=== PATIENT | male | born 1965 ===

== ENCOUNTER 2016-05-26 16:51 | Emergency (ER) | payer BC, OTHER ==
[2016-05-26 17:02] VITALS: RESP 16; TEMP 98; BMI 23.0
--- NOTE | 2016-05-26 17:08 | ED PDOC ---
Arrival/HPI - General Chief Complaint: Trauma Time Seen by Provider: 05/26/16 16:53 Historian: Patient - History of Present Illness Narrative History of Present Illness (Text): 05/26/16 17:06 50yo male with no PMhx present with complaint of back, left side neck and headache s/p trauma 3days ago. States he slipped on ice and fell 3days ago. States he came to the ED for the persistent pain. Took Vicodin at home. Notes chronic back pain history. Denies LOC, focal weakness, nausea, vomiting, visual changes, urinary/fecal incontinence, any other complaint. Past Medical History - Provider Review Nursing Documentation Reviewed: Yes - Gastrointestinal Hx Gastroesophageal Reflux: Yes - Psychiatric Hx Substance Use: No Family/Social History - Physician Review Nursing Documentation Reviewed: Yes Family/Social History: Unknown Family HX Smoking Status: Never Smoked Hx Alcohol Use: No Hx Substance Use: No Allergies/Home Meds Allergies/Adverse Reactions: Allergies No Known Allergies Allergy (Verified 05/26/16 17:04) Home Medications: Home Meds Medication Instructions Recorded Confirmed Omeprazole [Omeprazole] 20 mg PO DAILY 05/26/16 05/26/16 Zolpidem [Ambien] 5 mg PO HS 05/26/16 05/26/16 Review of Systems - Physician Review All systems were reviewed & negative as marked: Yes - Review of Systems Constitutional: Normal Eyes: Normal ENT: Normal Respiratory: Normal Cardiovascular: Normal Gastrointestinal: Normal Genitourinary Male: Normal Musculoskeletal: Back Pain, Neck Pain Skin: Normal Neurological: Headache Endocrine: Normal Hemo/Lymphatic: Normal Psychiatric: Normal Physical Exam Vital Signs Reviewed: Yes Vital Signs Temp Pulse Resp BP Pulse Ox 05/26/16 18:41 72 16 134/94 H 99 05/26/16 16:59 98.0 F 83 16 150/104 H 98 Temperature: Afebrile Blood Pressure: Hypertensive Pulse: Regular Respiratory Rate: Normal Appearance: Positive for: Well-Appearing, Non-Toxic, Comfortable Pain Distress: None Mental Status: Positive for: Alert and Oriented X 3 - Systems Exam Head: Present: Atraumatic, Normocephalic Pupils: Present: PERRL Extroacular Muscles: Present: EOMI Conjunctiva: Present: Normal Mouth: Present: Moist Mucous Membranes Neck: Present: Normal Range of Motion, Paraspinal Tenderness (LEft sided). No: MIDLINE TENDERNESS Respiratory/Chest: Present: Clear to Auscultation, Good Air Exchange. No: Respiratory Distress, Accessory Muscle Use Cardiovascular: Present: Regular Rate and Rhythm, Normal S1, S2. No: Murmurs Abdomen: Present: Normal Bowel Sounds. No: Tenderness, Distention, Peritoneal Signs Back: Present: Normal Inspection. No: Midline Tenderness, Paraspinal Tenderness , Pain with Leg Raise Upper Extremity: Present: Normal Inspection, Normal ROM, NORMAL PULSES, Neurovascularly Intact, Capillary Refill < 2s. No: Cyanosis, Edema, Tenderness , Swelling, Erythema, Temperature Abnormalties, Deformity Lower Extremity: Present: Normal Inspection. No: Edema Neurological: Present: GCS=15, CN II-XII Intact, Speech Normal, Motor Func Grossly Intact, Normal Sensory Function, Normal Cerebellar Funct, Norm Deep Tendon Reflexes, Gait Normal, Memory Normal, Normal 2Pt Descrimination, Other ( No focal neurological deficit) Skin: Present: Warm, Dry, Normal Color. No: Rashes Psychiatric: Present: Alert, Oriented x 3, Normal Insight, Normal Concentration Medical Decision Making ED Course and Treatment: 05/26/16 18:[address] - No acute finding LS and cervical spine xray - No acute finding. Result was DW the pt. He was neurological intact and ambulatory in ED. He is on Vicodin at home. Rx of Flexeril given. Referred to his PMD/Orthopedist. TRT ER for any new or worsening symptoms. - RAD Interpretation Radiology Orders: 05/26/16 17:14 HEAD W/O CONTRAST [CT] Stat CERVICAL SPINE >18YR W/OBLIQUE [RAD] Stat LS SPINE WITH OBL > 18 YRS OLD [RAD] Stat - Medication Orders Current Medication Orders: Discontinued Medications Ketorolac Tromethamine (Toradol) 60 mg IM STAT STA Stop: 05/26/16 18:25 Last Admin: 05/26/16 18:34 Dose: 60 MG IM Administration Charges Document 05/26/16 18:34 HI (Rec: 05/26/16 18:34 HI [id number]) Injection Site MAR Injection Site Left Gluteus Carlos Charges for Administration # of IM Administrations 1 Disposition/Present on Arrival - Present on Arrival Any Indicators Present on Arrival: No History of DVT/PE: No History of Uncontrolled Diabetes: No Urinary Catheter: No History of Decub. Ulcer: No History Surgical Site Infection Following: None - Disposition Have Diagnosis and Disposition been Completed?: Yes Diagnosis: Cervical pain, Back pain, Headache Disposition: HOME/ ROUTINE Disposition Time: 18:30 Patient Plan: Discharge Condition: STABLE Discharge Instructions (ExitCare): Cervical Sprain (ED), Back Pain (ED), Acute Headache (ED) Additional Instructions: Follow up with your Doctor/Orthopedist Return to ED for any new or worsening symptoms Prescriptions: Cyclobenzaprine [Cyclobenzaprine HCl] 10 mg PO BID #10 tab Referrals: Renee Oconnell DO [Primary Care Provider] - Follow up with primary Mesfin Purvis MD [Staff Provider] - Follow up with primary Forms: WORK NOTE
--- NOTE | 2016-05-26 18:20 | CT ---
PROCEDURE: CT HEAD WITHOUT CONTRAST. HISTORY: headache s/p trauma COMPARISON: None available. TECHNIQUE: Axial computed tomography images were obtained through the head/brain without intravenous contrast. Radiation dose: Total exam DLP = 851.7 mGy-cm. FINDINGS: HEMORRHAGE: No intracranial hemorrhage. BRAIN: No mass effect or edema. No atrophy or chronic microvascular ischemic changes. VENTRICLES: Unremarkable. No hydrocephalus. CALVARIUM: Unremarkable. PARANASAL SINUSES: Unremarkable as visualized. No significant inflammatory changes. MASTOID AIR CELLS: Unremarkable as visualized. No inflammatory changes. OTHER FINDINGS: None. IMPRESSION: No evidence of acute intracranial hemorrhage intracranial collection mass effect or midline shift.
[2016-05-26 18:43] VITALS: BP 134/94; PULSE 72; O2SAT 99
--- NOTE | 2016-05-27 10:38 | RAD ---
Indication: Back pain status post trauma Lumbar spine radiographs Comparison: CT abdomen and pelvis without contrast performed 06/17/13 Findings: The patient is status post anterior lumbar fusion involving L4-L5 and L5-S1. Small osteophyte formation of the upper lumbar spine. No acute displaced fracture appreciated. Alignment appears satisfactory. Impression: L4-L5 and L5-S1 anterior lumbar fusion.
--- NOTE | 2016-05-27 10:42 | RAD ---
PROCEDURE: Cervical Spine Radiographs. HISTORY: Pain. COMPARISON: None available FINDINGS: BONES: Limited lateral views. Multilevel degenerative changes including intervertebral disc space narrowing and osteophyte formation. The dens tip is obscured. Alignment appears within normal limits. No acute displaced fracture appreciated. SOFT TISSUES: No prevertebral soft tissue swelling. OTHER FINDINGS: None. IMPRESSION: Limited lateral views. Multilevel degenerative changes. The dens tip is obscured. No acute displaced fracture appreciated. CT may be considered for further evaluation if clinically indicated.
== END 2016-05-26 18:43 | disposition home or self-care (01) ==
LOC: ED 16:51
DX: R51 Headache (principal); M54.2 Cervicalgia; M54.9 Dorsalgia, unspecified
CPT/HCPCS: 70450; 72050; 72110; 96372; 99285; J1885